=== PATIENT | female | born 1995 | race Two or more races ===

== ENCOUNTER 2017-05-21 06:22 | Emergency (ER) | payer SELFPAY ==
[2017-05-21 06:39] VITALS: BMI 28.5
[2017-05-21 07:18] LABS: RBC URINE 1 /hpf (0-3); URINE BACTERIA RARE (<OCC); URINE BILIRUBIN NEGATIVE (NEGATIVE); URINE BLOOD NEGATIVE (NEGATIVE); URINE COLOR Yellow (YELLOW); URINE GLUCOSE (UA) NORMAL (Normal); URINE KETONE NEGATIVE (NEGATIVE); URINE LEUKOCYTE ESTERASE 1+ Leu/uL (Negative); URINE PROTEIN NEGATIVE (NEGATIVE); URINE UROBILINOGEN NORMAL mg/dL (0.2-1.0); WBC URINE 1 /hpf (0-5)
--- NOTE | 2017-05-21 08:56 | US ---
PROCEDURE: OB Pelvic Ultrasound HISTORY: vag spotting, h/o praevia. 22 wks. P0 21-year-old female. LMP 12/25/2016. Estimated gestational age by LMP 21 weeks 0 days. COMPARISON: None available. FINDINGS: Gestational sac: Single intrauterine gestation. Heart rate: 144 bpm. age (Ultrasound estimated) per multiple biometric parameters: 21 weeks 3 days Geovanna-gestational hemorrhage: None. Date of delivery (Ultrasound estimated) : 09/28/2017 No uterine masses presentation: Breech Placenta left lateral: 3.2 cm from cervix 4 cm long and closed. No cervical abnormality seen. Unremarkable ovaries OTHER FINDINGS: Limited anatomy -grossly unremarkable IMPRESSION: Single intrauterine gestation with cardiac activity. No previa. Placenta left lateral - 3.2 cm from closed cervix. Estimated gestational age by ultrasound 21 weeks 3 days. Estimated gestational age by LMP 21 weeks 0 days. Breech presentation Estimated date of delivery by ultrasound 09/28/2017. Estimated date of delivery by LMP 10/01/2017
--- NOTE | 2017-05-21 09:28 | OBHP ---
Datetime: 05/21/2017 06:43 IP Adm Impression: , intrauterine IP Chief Complaint Other: vaginal spotting; h/o low lying placenta IP Admit Plan: Observation/Evaluation Admit Comment, IP Provider: 21 y.o. , LMP unsure, KATYA 09/20/17, EGA 22w 4d c/o vagnal spotting no lyric at 0500 hours while wiping after micturition - first time. No sexually intercourse since January,. Not sure of FM; acknowledges "butterfly-like" sensation. Denies abdominal pain or leakage of f luid. care: [place], [place] - reports h/o low-lying placenta. P Ob: primip P [employer]; 12 x monthly x 5-7. Denies H/O STIs PMH: denies asthma, HTN, DM, heart condition PSH: denies NKDA Meds: PNV - QD Soc Hx: denies tobacco, illicit drug or EtOH use. x 4 months. Here in [place] for vacation; sig htseeing - "5 more days left" Fam Hx: Mother alive 40s - HTN, DM. Father - unknown. No fam h/o cancer P.E.: as above. Small in NAD; crying - anxious. Awake, alert, oriented to time, person , place. C ooperative Assessment: 21 y.o. P0, 22w 4d - h/o low-lying placenta - vaginal spotting. Most likely due to va ginal irritation from vagintis caused by presumptive candidiasis and/or bacterial vaginitis. FHR appr opriate for gestaional age. R/O HSV-2 Plan 1) Ob ultrasound 2) HSV culture 3) observe Addendum: 0917 hours - labs resulted: 1) U/A 1+ leuk esterase; 2) Ob ultrasound: AGA 21w, left lateral placenta, no pr aevia (3.4 cm from cervical os). Assessment: Discussed results with patient: very concerned and anxious about vaginal bleeding; st souza was told by her doctor that she would need a . It was explained to patient, if in thir d trimester she had a complete or partial palcenta praevia, then Cesaerean section would be the mode of delivery. At this time, based on today's ultrasound, there is no evidence of placenta praevia. Pat ient and relieved. Als explained presumtive UTI and BV/candiasis. Lastly, patient advised t o return to [facility], 05/25, for results of cultrue taken today. Patient expressed an understadning a nd agrees. Patient is clinicallystable. Plan: 1) Discharge home 2) Rx: keflax 500 mg 1 tab po BID x 7 days 3) Rx: Metronidazole 500 mg 1 tab po BID x 7 days 4) Rx: Diflucan 150 mg 1 tab p.o.: first dose now, 2nd dose after antibiotics. 5) Drink plenty of water, and cranberry juice, the latter once a day. Pelvic Type - PN: Not Done Extremities - PN: Normal Abdomen - PN: Normal Back - PN: Normal Breast - PN: Not Done Lungs - PN: Normal Heart - PN: Normal Thyroid - PN: Not Done Neurologic - PN: Normal HEENT - PN: Normal General - PN: Normal FHR - Baseline A Provider: 140 Contraction Comments Provider: none Comments, ACOG Physical Exam: Abdomen: Soft. Gravid. non tender in all quadrants. Fundal at umbilicu s Perineum: suspicious ulcer-like lesion on right labium. Signs of vulvar candidiasis Spec: copious amount of thick, cheesy, greeninsh- yellow discharge. No blood visualized at all All other systems reviewed and are negative EGA AdmitDate IP: 22.4 Vital Signs Provider: Reviewed; Within Normal Limits IP Chief Complaint: Other NICHD Variability Prov Fetus A: Moderate 6-25bpm NICHD Decel Fetus A IP Provider: None Genitourinary Exam: Abnormal DTRs - PN: Not Done
[2017-05-21 15:33] VITALS: BP 114/69; PULSE 75; RESP 18; TEMP 97.5; O2SAT 98
== END 2017-05-21 09:35 | disposition home or self-care (01) ==
LOC: C.EROB 06:22
DX: O26.852 Spotting complicating pregnancy, second trimester (principal); O23.42 Unspecified infection of urinary tract in pregnancy, second trimester; O98.812 Other maternal infectious and parasitic diseases complicating pregnancy, second trimester; B37.3 Candidiasis of vulva and vagina; Z3A.22 22 weeks gestation of pregnancy